=== PATIENT | female | born 1980 | race African-American/Black ===

== ENCOUNTER 2019-08-01 14:51 | Emergency (ER) | payer SELFPAY ==
[~2019-08-01] VITALS: Ht 162.6 cm; Wt 91.0 kg
[2019-08-01 14:52] VITALS: BP 154/4
[2019-08-01] MEDS ORDERED: ONDANSETRON HCL 4MG/2ML INJ IV STA (15:28)
[2019-08-01] MEDS ORDERED: SODIUM CHLORIDE 0.9% 1,000 ML IV ONE (15:28)
[2019-08-01] MEDS ORDERED: LORAZEPAM 2MG/ML CPJ IV ONE (15:30)
[2019-08-01] MEDS ORDERED: DIPHENHYDRAMINE 50MG/ML VIAL IV ONE (15:30)
[2019-08-01] MEDS ORDERED: LORAZEPAM 2MG/ML CPJ IM ONE ×2 (15:45→16:45)
[2019-08-01] MEDS ORDERED: DIPHENHYDRAMINE 50MG/ML VIAL IM ONE (15:45)
[2019-08-01 16:12] LABS: CHLORIDE 104 mEq/L (98-107)
[2019-08-01 16:14] LABS: BASOPHILS % 0.9 % (0.0-2.0); EOSINOPHILS % 1.2 % (0.0-5.0); HEMATOCRIT. 39.1 % (36.0-48.0); HEMOGLOBIN. 13.2 g/dL (12.0-16.0); LYMPHOCYTES % 41.3 % (20.0-50.0); MEAN CORPUSCULAR HEMOGLOBIN 30.6 pg (28.0-32.0); MEAN CORPUSCULAR VOLUME 90.9 fL (81.0-99.0); MEAN PLATELET VOLUME 8.7 fl (7.4-10.4); MONOCYTES % 8.2 % (2.0-8.0); NEUTROPHILS % 48.4 % (40.0-76.0); PLATELET 258 x1000/uL (130-400); RED BLOOD CELL COUNT 4.31 mill/uL (4.2-5.4)
[2019-08-01 16:18] LABS: HCG SCREEN NEGATIVE
[2019-08-01] MEDS ORDERED: OLANZAPINE 10 MG/VIAL IM ONE (16:45)
[2019-08-01] MEDS ORDERED: PERMETHRIN 5% CREAM 60GM TOP ONE (17:15)
== END 2019-08-01 17:27 | disposition home or self-care (01) ==
LOC: ER 14:51
DX: L29.9 Pruritus, unspecified (principal); I50.9 Heart failure, unspecified; M79.7 Fibromyalgia; E11.9 Type 2 diabetes mellitus without complications; T14.8XXA Other injury of unspecified body region, initial encounter; Z95.0 Presence of cardiac pacemaker; W57.XXXA Bitten or stung by nonvenomous insect and other nonvenomous arthropods, initial encounter; Y93.89 Activity, other specified; Y92.9 Unspecified place or not applicable
CPT/HCPCS: 36415; 71045; 80053; 83690; 83880; 84703; 85025; 96372; 99284; J1200; J2060; J7030; Z7610